=== PATIENT | male | born 1955 | race Asian ===

== ENCOUNTER 2018-10-25 00:10 | Emergency (ER) | payer OTHER ==
[~2018-10-25] VITALS: Ht 170.2 cm; Wt 68.0 kg
[2018-10-25 00:10] VITALS: BP_SYST 156
--- NOTE | 2018-10-25 00:10 | NUR ---
Pt YURI Leal for okay to book r/t HTN. Pt AAOx4, denies C/P or SOB, no c/o pain or discomfort.
--- NOTE | 2018-10-25 00:10 | NUR ---
Pt placed to ER chair 1.
--- NOTE | 2018-10-25 00:15 | NUR ---
Dr. Tabor assessing pt.
--- NOTE | 2018-10-25 00:24 | NUR ---
Patient and environmental officer given written and verbal discharge instructions and verbalizes understanding. ER MD discussed with patient the results and treatment provided. ID arm band removed. No Rx given. Patient educated on pain management and to follow up with PMD. Pain Scale 0/10. Opportunity for questions provided and answered. Medication side effect fact sheet provided. Pt leaves ER ambulatory, in stable condition, in c/o [place] [employer] to snf.
== END 2018-10-25 00:24 ==
LOC: SED 00:10
DX: I10 Essential (primary) hypertension (principal)
CPT/HCPCS: 99283